=== PATIENT | female | born 1955 | race American Indian/Alaskan Native ===

== ENCOUNTER 2016-09-16 08:04 | Emergency (ER) | payer MEDICAID ==
[2016-09-16] MEDS ORDERED: DECADRON ONE (08:15)
[2016-09-16] MEDS ORDERED: PEPCID IV ONE ×2 (08:15→08:18)
[2016-09-16] MEDS ORDERED: BENADRYL ONE (08:15)
[2016-09-16] MEDS ORDERED: ADRENALIN ONE (08:17)
[2016-09-16] MEDS ORDERED: DECADRON IV ONE (08:18)
[2016-09-16] MEDS ORDERED: BENADRYL IV ONE (08:18)
[2016-09-16] MEDS ORDERED: ADRENALINE P/F IM ONE (08:18)
--- NOTE | 2016-09-16 08:23 | Emergency Department Report ---
ED Allergic Reaction HPI - General Chief complaint: Allergic Reaction Stated complaint: SWOLLEN TONGUE Time Seen by Provider: 09/16/16 08:18 Source: patient Mode of arrival: Ambulatory Limitations: No Limitations - History of Present Illness Initial Comments: 61-year-old female recently restarted on lisinopril here with right sided tongue swelling since 3 AM. Patient denies difficulty breathing at this time. States that she was recently restarted on lisinopril last week after her blood pressure remained elevated. Denies chest pain fevers chills nausea vomiting. MD Complaint: allergic reaction -: hour(s) (5 hours ago) Symptoms: difficulty swallowing, orolingual swelling. denies: hoarseness Severity: moderate Treatment Prior to Arrival: none Previous Allergy History: none - Related Data Previous Rx's Medication Instructions Recorded Last Taken Type Famotidine [Pepcid] 20 mg PO BID #10 tablet 09/16/16 Unknown Rx diphenhydrAMINE [Benadryl CAP] 25 mg PO Q6HR PRN #30 capsule 09/16/16 Unknown Rx predniSONE [Deltasone] 40 mg PO QDAY #8 tab 09/16/16 Unknown Rx Allergies Allergy/AdvReac Type Severity Reaction Status Date / Time No Known Allergies Allergy Verified 09/16/16 08:16 ED Review of Systems ROS: Stated complaint: SWOLLEN TONGUE Other details as noted in HPI Comment: All other systems reviewed and negative Constitutional: denies: chills, fever Eyes: denies: eye pain, eye discharge, vision change ENT: throat pain. denies: ear pain, dental pain, epistaxis Respiratory: denies: cough, shortness of breath, wheezing Cardiovascular: denies: chest pain, palpitations Endocrine: no symptoms reported Gastrointestinal: denies: abdominal pain, nausea, diarrhea Genitourinary: denies: urgency, dysuria, discharge Musculoskeletal: denies: back pain, joint swelling, arthralgia Skin: denies: rash, lesions Neurological: denies: headache, weakness, paresthesias Psychiatric: denies: anxiety, depression Hematological/Lymphatic: denies: easy bleeding, easy bruising ED Past Medical Hx - Past Medical History Previous Medical History?: Yes Hx Hypertension: Yes Hx Diabetes: Yes - Surgical History Past Surgical History?: Yes - Family History Family history: no significant - Social History Smoking Status: Current Every Day Smoker Substance Use Type: None - Medications Home Medications: Home Medications Medication Instructions Recorded Confirmed Last Taken Type Famotidine [Pepcid] 20 mg PO BID #10 tablet 09/16/16 Unknown Rx diphenhydrAMINE [Benadryl CAP] 25 mg PO Q6HR PRN #30 capsule 09/16/16 Unknown Rx predniSONE [Deltasone] 40 mg PO QDAY #8 tab 09/16/16 Unknown Rx ED Physical Exam - General Limitations: No Limitations General appearance: alert, in no apparent distress - Head Head exam: Present: atraumatic, normocephalic - Eye Eye exam: Present: normal appearance Pupils: Present: normal accommodation - ENT ENT exam: Present: mucous membranes moist - Expanded ENT Exam Expanded Mouth exam: Present: other (right sided tongue swelling). Absent: drooling, trismus, muffled voice Throat exam: Positive: normal inspection - Neck Neck exam: Present: normal inspection - Respiratory Respiratory exam: Present: normal lung sounds bilaterally. Absent: respiratory distress, wheezes - Cardiovascular Cardiovascular Exam: Present: regular rate, normal rhythm. Absent: systolic murmur, diastolic murmur, rubs, gallop - GI/Abdominal GI/Abdominal exam: Present: soft, normal bowel sounds. Absent: distended, tenderness - Extremities Exam Extremities exam: Present: normal inspection - Back Exam Back exam: Present: normal inspection - Neurological Exam Neurological exam: Present: alert, oriented X3 - Psychiatric Psychiatric exam: Present: normal affect, normal mood - Skin Skin exam: Present: warm, dry, intact, normal color. Absent: rash ED Course Vital Signs 09/16/16 09/16/16 08:07 08:20 Temperature 98.6 F Pulse Rate 100 H 89 Respiratory 22 16 Rate Blood Pressure 147/79 O2 Sat by Pulse 98 Oximetry ED Medical Decision Making - Medical Decision Making 61-year-old female with a history of lisinopril use here with angioedema. She has some significant swelling of the right side of her tongue. She is not having difficulty swallowing or breathing at this time. Plan to treat her with IV Decadron Benadryl Pepcid and IM epinephrine. Plan to reassess. 9 AM patient with mild improvement. Tongue is not continuing to swell at this point. Plan to continue to observe for 4 hours. 10 AM patient with continued improvement. Tongue swelling has decreased. She has no difficulty swallowing or breathing. Plan to observe until 12pm. Patient reassessed at 12 PM and tongue swelling continues to decrease. Plan to discharge. Counseled on reasons to return. Portions of this chart were dictated with dictation software. There may be dictation errors contained within this note. Critical Care Time: Yes Critical care attestation.: If time is entered above; I have spent that time in minutes in the direct care of this critically ill patient, excluding procedure time. Critical Care Time: 60 minutes ED Disposition Clinical Impression: Angioedema Disposition: DC- TO HOME OR SELFCARE Is pt being admited?: No Condition: Stable Instructions: Angioedema (ED) Additional Instructions: Follow-up as with her primary care doctor to initiate new blood pressure medication. Prescriptions: diphenhydrAMINE [Benadryl CAP] 25 mg PO Q6HR PRN #30 capsule PRN Reason: Allergic Reaction Famotidine [Pepcid] 20 mg PO BID #10 tablet predniSONE [Deltasone] 40 mg PO QDAY #8 tab Referrals: EDWIN KLINE MD [Primary Care Provider] - 3-5 Days
[2016-09-16] MEDS ORDERED: ADRENALIN IV ONE (08:45)
[2016-09-16 13:04] VITALS: BP 148/75
== END 2016-09-16 13:02 | disposition home or self-care (01) ==
LOC: ED 08:04
DX: T78.3XXA Angioneurotic edema, initial encounter (principal); I10 Essential (primary) hypertension; E11.9 Type 2 diabetes mellitus without complications; F17.200 Nicotine dependence, unspecified, uncomplicated
CPT/HCPCS: 96372; 96374; 96375; 99291; J0171; J1100; J1200